=== PATIENT | female | born 1970 | race Caucasian/White ===

== ENCOUNTER 2018-02-08 13:00 | Emergency (ER) | payer OTHER ==
[~2018-02-08] VITALS: Ht 154.9 cm; Wt 74.4 kg
[2018-02-08 13:06] VITALS: BP 112/66
[2018-02-08] MEDS ORDERED: BACITRACIN OINT 500 UNITS/GM PKT TP ONE (14:35)
[2018-02-08] MEDS ORDERED: NEOMYCIN/POLYMYXIN/BACITRACIN 0.9 GM/1 PKT TP ONE (14:38)
[2018-02-08 14:54] VITALS: BP 115/65
== END 2018-02-08 14:55 | disposition home or self-care (01) ==
LOC: MED 13:00
DX: S61.202A Unspecified open wound of right middle finger without damage to nail, initial encounter (principal); E11.9 Type 2 diabetes mellitus without complications; Z86.73 Personal history of transient ischemic attack (TIA), and cerebral infarction without residual deficits; W25.XXXA Contact with sharp glass, initial encounter; Y93.89 Activity, other specified; Y99.8 Other external cause status; Y92.89 Other specified places as the place of occurrence of the external cause
CPT/HCPCS: 99283

== ENCOUNTER 2018-04-12 13:22 | Emergency (ER) | payer OTHER ==
[~2018-04-12] VITALS: Ht 154.9 cm; Wt 72.6 kg
[2018-04-12 13:49] VITALS: BP 106/84
--- NOTE | 2018-04-12 13:55 | NUR ---
PT C/O RASH X 2 DAYS ALL OVER BODY 10/10 BURNING PAIN, NO KNOWN NEW FOOD OR DETERGENTS. NO OTHER ASSOCIATED SYMPTOMS. HX: CVA, NARAYAN'S PALSY
--- NOTE | 2018-04-12 13:55 | NUR ---
Patient ambulated to bed 2. RN evaluating patient at bedside.
[2018-04-12] MEDS ORDERED: DEXAMETHASONE 10 MG/ML VIAL IM ONE (14:25)
[2018-04-12] MEDS ORDERED: diphenhydrAMINE 50 MG/ML VIAL IM ONE (14:25)
[2018-04-12 16:08] VITALS: BP 104/69
--- NOTE | 2018-04-12 16:08 | NUR ---
Patient discharged with v/s stable. Written and verbal after care instructions given and explained. Patient alert, oriented and verbalized understanding of instructions. Ambulatory with steady gait. All questions addressed prior to discharge. ID band removed. Patient advised to follow up with PMD. Rx of PREDNISONE, ATARAX given. Patient educated on indication of medication including possible reaction and side effects. Opportunity to ask questions provided and answered.
== END 2018-04-12 16:08 | disposition home or self-care (01) ==
LOC: MED 13:22
DX: L50.0 Allergic urticaria (principal); E11.9 Type 2 diabetes mellitus without complications; Z86.73 Personal history of transient ischemic attack (TIA), and cerebral infarction without residual deficits; X58.XXXA Exposure to other specified factors, initial encounter
CPT/HCPCS: 96372; 99284; J1100; J1200

== ENCOUNTER 2018-09-01 05:45 | Emergency (ER) | payer OTHER ==
[~2018-09-01] VITALS: Ht 154.9 cm; Wt 68.0 kg
[2018-09-01 05:50] VITALS: BP 121/89
--- NOTE | 2018-09-01 05:50 | NUR ---
Pt presents to ED with bilat lower leg weakness, states waking with diaphoresis, SOB without dyspnea. Pt denies pain or other Medical Hx. Bilat lungs clear throughout all lobes. A&Ox4. Ambulated to bed 5 with strong and steady gate. No diaphoresis or fever present upon ED arrival. Positioned for comfort with HOB elvated. vss. ER MD aware. Continue to monitor.
--- NOTE | 2018-09-01 05:50 | NUR ---
Pt ambulated to bed 5 with vss.
--- NOTE | 2018-09-01 06:15 | NUR ---
EKG PERFORMED AT BEDSIDE. PT COVERED IN GOWN AND BLANKET DURING PROCEDURE
[2018-09-01 06:55] LABS: BASOPHILS % (AUTO) 0.6 % (0.0-2.0); EOSINOPHILS # (AUTO) 0.2 K/uL (0-0.4); EOSINOPHILS % (AUTO) 4.8 % (0.0-4.0); HEMATOCRIT 37.5 % (36-48); HEMOGLOBIN 12.4 g/dL (12.0-16.0); LYMPHOCYTES # (AUTO) 1.4 K/uL (2.5-16.5); LYMPHOCYTES % (AUTO) 28.1 % (20.5-51.1); MEAN CORPUSCULAR HEMOGLOBIN 29 pg (27-31); MEAN CORPUSCULAR HGB CONC 33 g/dL (33-37); MEAN CORPUSCULAR VOLUME 87.6 fL (80-94); MONOCYTES # (AUTO) 0.5 K/uL (0.8-1.0); MONOCYTES % (AUTO) 10.1 % (1.7-9.3); NEUTROPHILS # (AUTO) 2.7 K/uL (1.8-7.7); NEUTROPHILS % (AUTO) 56.4 % (42.2-75.2); PLATELET COUNT (AUTO) 202 K/uL (140-450); RED BLOOD CELL COUNT(AUTO) 4.28 MIL/uL (4.20-5.40); RED CELL DISTRIBUTION WIDTH 13.6 % (11.6-13.7); WHITE BLOOD COUNT (AUTO) 4.8 K/uL (4.8-10.8)
[2018-09-01 07:06] LABS: ANION GAP 10.9 (8-16); CARBON DIOXIDE 26.4 mmol/L (21-32); CREATININE 0.7 mg/dL (0.6-1.3); POTASSIUM 3.3 mmol/L (3.5-5.1)
--- NOTE | 2018-09-01 07:19 | NUR ---
RECIEVED REPORT FROM DANIELLA WILDER. PATIENT VSS AT THIS TIME. NO STATED NEEDS.
[2018-09-01 07:21] LABS: ALBUMIN 3.1 g/dL (3.4-5.0); FREE T4 (FREE THYROXINE) 0.9 ng/dL (0.76-1.46); THYROID STIMULATING HORMONE 2.7 uIU/mL (0.34-3.74); TOTAL BILIRUBIN 0.5 mg/dL (0.0-1.0)
[2018-09-01 07:48] VITALS: BP 121/89
--- NOTE | 2018-09-01 07:49 | NUR ---
Patient discharged with v/s stable. Written and verbal after care instructions given and explained. Patient verbalized understanding. Ambulatory with steady gait. All questions addressed prior to discharge. Advised to follow up with PMD.
[2018-09-01 08:12] LABS: CREATINE KINASE MB 1.8 ng/mL (0-3.6)
== END 2018-09-01 07:49 | disposition home or self-care (01) ==
LOC: MED 05:45
DX: R06.02 Shortness of breath (principal); M62.81 Muscle weakness (generalized); E11.9 Type 2 diabetes mellitus without complications; Z90.49 Acquired absence of other specified parts of digestive tract; Z86.73 Personal history of transient ischemic attack (TIA), and cerebral infarction without residual deficits
CPT/HCPCS: 36415; 71045; 80053; 82550; 82553; 82948; 83690; 84439; 84443; 84484; 85025; 93005; 99284; Q0092

== ENCOUNTER 2018-09-07 16:11 | Emergency (ER) | payer OTHER ==
[~2018-09-07] VITALS: Ht 154.9 cm; Wt 72.1 kg
[2018-09-07 16:18] VITALS: BP 146/85
[2018-09-07] MEDS ORDERED: KETOROLAC 60 MG/2 ML VIAL IM ONE (17:10)
[2018-09-07 17:27] VITALS: BP 130/72
== END 2018-09-07 17:28 | disposition home or self-care (01) ==
LOC: MED 16:11
DX: R00.2 Palpitations (principal); R06.02 Shortness of breath; R11.0 Nausea; E11.9 Type 2 diabetes mellitus without complications; Z86.73 Personal history of transient ischemic attack (TIA), and cerebral infarction without residual deficits; Z90.49 Acquired absence of other specified parts of digestive tract
CPT/HCPCS: 81002; 81025; 96372; 99283; J1885

== ENCOUNTER 2019-07-13 22:42 | Emergency (ER) | payer OTHER ==
[~2019-07-13] VITALS: Ht 154.9 cm; Wt 72.6 kg
[2019-07-13 22:54] VITALS: BP 124/86
--- NOTE | 2019-07-13 22:57 | NUR ---
PT AMBULATED TO LOBBY. PROVIDING URINE.
--- NOTE | 2019-07-13 23:35 | NUR ---
PT RETURNTED FROM CT. PT SITTING IN CHAIR B AT THIS TIME. VSS. CONTINUE TO MONITOR.
--- NOTE | 2019-07-13 23:58 | NUR ---
PATIENT AMBULATED TO ER BED 7
--- NOTE | 2019-07-14 00:15 | NUR ---
PT C/O DIZZINESS, BLURRED VISION, AND RT SIDED HEAD PAIN. PT STATES IT STARTED WHEN SHE STOOD UP. DENIES N/V/D. PERRL. PT IN BED, CALM AND PLEASANT. VSS. FAMILY AT BEDSIDE. MEDHX: STROKE ALLERGIES: DENIES
--- NOTE | 2019-07-14 00:33 | NUR ---
DR. SCHAEFER BEDSIDE EVALUATING PT
[2019-07-14] MEDS ORDERED: ONDANSETRON 4 MG/2 ML VIAL IVP ONE (00:40)
[2019-07-14] MEDS ORDERED: MECLIZINE 25 MG TAB PO ONE (00:40)
[2019-07-14] MEDS ORDERED: NACL 0.9% 1,000 ML IV ONE (00:40)
[2019-07-14 00:58] LABS: BASOPHILS % (AUTO) 0.2 % (0.0-2.0); EOSINOPHILS # (AUTO) 0.1 K/uL (0-0.4); EOSINOPHILS % (AUTO) 1.4 % (0.0-4.0); HEMATOCRIT 37.5 % (36-48); HEMOGLOBIN 12.5 g/dL (12.0-16.0); LYMPHOCYTES # (AUTO) 1.5 K/uL (2.5-16.5); LYMPHOCYTES % (AUTO) 13.9 % (20.5-51.1); MEAN CORPUSCULAR HEMOGLOBIN 30 pg (27-31); MEAN CORPUSCULAR HGB CONC 33 g/dL (33-37); MEAN CORPUSCULAR VOLUME 89.5 fL (80-94); MONOCYTES # (AUTO) 0.6 K/uL (0.8-1.0); MONOCYTES % (AUTO) 5.5 % (1.7-9.3); NEUTROPHILS # (AUTO) 8.4 K/uL (1.8-7.7); PLATELET COUNT (AUTO) 205 K/uL (140-450); RED BLOOD CELL COUNT(AUTO) 4.18 MIL/uL (4.20-5.40); RED CELL DISTRIBUTION WIDTH 13.7 % (11.6-13.7); WHITE BLOOD COUNT (AUTO) 10.7 K/uL (4.8-10.8)
[2019-07-14 01:13] LABS: ANION GAP 10.2 (8-16); CREATININE 0.7 mg/dL (0.6-1.3); POTASSIUM 4.2 mmol/L (3.5-5.1)
--- NOTE | 2019-07-14 01:19 | NUR ---
PT RESTING IN BED WITH DAUGHTER AT BEDSIDE. VSS AT THIS TIME. PT POSITIONED COMFORTLY IN BED. WILL CONTINUE TO MONITOR.
[2019-07-14 01:27] LABS: CREATINE KINASE MB 0.4 ng/mL (0-3.6)
[2019-07-14 01:28] LABS: ALBUMIN 3.3 g/dL (3.4-5.0); FREE T4 (FREE THYROXINE) 0.79 ng/dL (0.76-1.46); THYROID STIMULATING HORMONE 3.57 uIU/mL (0.34-3.74); TOTAL BILIRUBIN 0.3 mg/dL (0.0-1.0)
--- NOTE | 2019-07-14 01:36 | NUR ---
PT AMBULATED TO RESTROOM.
[2019-07-14 02:50] VITALS: BP 121/84
--- NOTE | 2019-07-14 02:50 | NUR ---
Patient discharged with v/s stable. Written and verbal after care instructions given and explained. Patient alert, oriented and verbalized understanding of instructions. Ambulatory with to home. All questions addressed prior to discharge. ID band removed. Patient advised to follow up with PMD. Rx of ZOFRAN ODT, AND MECLIZINE given. Patient educated on indication of medication including possible reaction and side effects. Opportunity to ask questions provided and answered. PT ACCOMPANIED BY DAUGHTER.
== END 2019-07-14 02:50 | disposition home or self-care (01) ==
LOC: MED 22:42
DX: R42 Dizziness and giddiness (principal); R11.0 Nausea; R51 Headache; E11.9 Type 2 diabetes mellitus without complications; Z86.73 Personal history of transient ischemic attack (TIA), and cerebral infarction without residual deficits
CPT/HCPCS: 36415; 70450; 71045; 80053; 82550; 82553; 83690; 84439; 84443; 84484; 85025; 93005; 96361; 96374; 99284; J2405; J7030; J8597; Q0092